=== PATIENT | male | born 1975 | race Caucasian/White ===

== ENCOUNTER 2020-08-31 09:19 | Outpatient (REF) | payer OTHER, SELFPAY | END 2020-08-31 09:20 | disposition home or self-care (01) | LOC: HO.LAB 09:19 | PROVIDERS: Visit Provider Internal Medicine | DX: Z20.828 Contact with and (suspected) exposure to other viral communicable diseases (principal) | CPT/HCPCS: 87635 ==

== ENCOUNTER 2020-10-03 17:32 | Outpatient (REF) | payer OTHER, SELFPAY | END 2020-10-03 17:33 | disposition home or self-care (01) | LOC: HO.LAB 17:32 | PROVIDERS: Visit Provider Internal Medicine | DX: Z20.828 Contact with and (suspected) exposure to other viral communicable diseases (principal) | CPT/HCPCS: C9803; U0003 ==

== ENCOUNTER 2020-10-17 07:53 | Outpatient (REF) | payer OTHER, SELFPAY | END 2020-10-17 07:54 | disposition home or self-care (01) | LOC: HO.LAB 07:53 | PROVIDERS: Visit Provider Internal Medicine | DX: Z20.828 Contact with and (suspected) exposure to other viral communicable diseases (principal) | CPT/HCPCS: C9803; U0003 ==

== ENCOUNTER 2021-09-05 14:00 | Outpatient (REF) | payer OTHER, SELFPAY ==
[2021-09-05 14:18] LABS: MANUAL DIFF FLAG NO
[2021-09-05 14:51] LABS: Basophils Percent Auto 0.3 % (0-2); Eosinophils Absolute Auto 0.1 X10*3/uL (0.0-0.4); Eosinophils Percent Auto 1.1 % (0-4); Hematocrit 48.8 % (42-52); Hemoglobin 16.5 g/dl (14.0-18.0); Imm Gran Abs Auto 0.03 X10*3/uL (0.00-0.03); Imm Gran Pct Auto 0.3 % (0.0-0.4); Lymphocytes Absolute Auto 2.3 X10*3/uL (1.2-4.9); Lymphocytes Percent Auto 25.9 % (20-40); Mean Corpuscular HGB Conc 33.8 g/dl (31.0-36.0); Mean Corpuscular Hemoglobin 28.7 pg (27.0-33.0); Mean Corpuscular Volume 84.9 fL (80-98); Mean Platelet Volume 11.8 fL (9.4-12.4); Monocytes Absolute Auto 0.6 X10*3/uL (0.1-1.2); Monocytes Percent Auto 6.7 % (2-11); Neutrophils Absolute Auto 5.8 X10*3/uL (2.0-8.3); Neutrophils Percent Auto 65.7 % (45-73); Platelet Count 264 X10*3/uL (160-400); Red Blood Count 5.75 X10*6/uL (4.60-5.80); Red Cell Distribution Width 13.8 % (11.0-16.0); White Blood Count 8.8 X10*3/uL (4.8-10.8)
[2021-09-05 14:58] LABS: Estimated Average Glucose 229 mg/dL; Hemoglobin A1c % 9.6 %
[2021-09-05 15:12] LABS: Alanine Aminotransferase 32 U/L (0-40); Albumin Level 4.4 g/dL (3.5-5.0); Alkaline Phosphatase 111 U/L (39-117); Anion Gap 13 (12-20); Aspartate Amino Transferase 23 U/L (5-37); Bilirubin Total 0.8 mg/dL (0.0-1.0); Blood Urea Nitrogen 10 mg/dL (9-16); Calcium 9.3 mg/dL (8.4-10.2); Carbon Dioxide 26 mmol/L (22-29); Chloride 102 mmol/L (96-108); Cholesterol 212 mg/dL; Estimated Glomerular Filt Rate > 60; Glucose Random 206 mg/dL (60-115); HDL Cholesterol 40 mg/dL; LDL Cholesterol Calculated 149 mg/dl; Potassium 4.2 mmol/L (3.3-5.1); Sodium 137 mmol/L (135-145); Total Protein 7.6 g/dL (6.5-8.0); Triglycerides 118 mg/dL
[2021-09-05 15:21] LABS: Creatinine Urine 302.92 mg/dL; Microalbum/Creatinine Ratio Ur 13.5 ug/mg cr
[2021-09-05 15:34] LABS: Thyroid Stimulating Hormone 1.53 uIU/mL (0.32-4.0)
== END 2021-09-05 14:01 | disposition home or self-care (01) ==
LOC: HO.LAB 14:00
PROVIDERS: PCP Internal Medicine; Visit Provider Internal Medicine
DX: Z00.01 Encounter for general adult medical examination with abnormal findings (principal); Z13.31 Encounter for screening for depression; E11.9 Type 2 diabetes mellitus without complications; E66.8 Other obesity
CPT/HCPCS: 36415; 80053; 80061; 82043; 83036; 84443; 85025